=== PATIENT | male | born 1980 | race Caucasian/White ===

== ENCOUNTER 2018-03-19 20:52 | Emergency (ER) | payer SELFPAY ==
[~2018-03-19] VITALS: Ht 175.3 cm; Wt 85.0 kg
[2018-03-19 21:14] VITALS: BP 137/87
[2018-03-19] MEDS ORDERED: PERTUSS(ACELL),DIPH,TET VAC/PF 0.5 ML VIAL IM ONE (21:15)
[2018-03-19] MEDS ORDERED: SODIUM CHLORIDE 0.9% 1,000 ML IV ONE (21:15)
== END 2018-03-19 21:40 | disposition short-term general hospital (02) ==
LOC: EMS 20:52
DX: S01.01XA Laceration without foreign body of scalp, initial encounter (principal); S41.112A Laceration without foreign body of left upper arm, initial encounter; W26.9XXA Contact with unspecified sharp object(s), initial encounter; Y93.89 Activity, other specified; Y92.89 Other specified places as the place of occurrence of the external cause; Y99.8 Other external cause status
CPT/HCPCS: 71045; 90471; 90715; 99285; J7030

== ENCOUNTER 2023-03-23 22:53 | Emergency (ER) | payer OTHER ==
[~2023-03-23] VITALS: Ht 175.3 cm; Wt 84.1 kg
[2023-03-24] MEDS: PERTUSS(ACELL),DIPH,TET VAC/PF 0.5 ML SYRINGE IM. ONE (02:53)
[2023-03-24] MEDS: IBUPROFEN 800 MG TABLET PO ONE (02:54)
[2023-03-24 03:17] VITALS: BP 124/71; PULSE 76; RESP 18; TEMP 98.3
== END 2023-03-24 03:24 | disposition home or self-care (01) ==
LOC: EMS 22:55
DX: S00.83XA Contusion of other part of head, initial encounter (principal); V19.88XA Pedal cyclist (driver) (passenger) injured in other specified transport accidents, initial encounter; Y93.89 Activity, other specified; Y92.89 Other specified places as the place of occurrence of the external cause; Y99.8 Other external cause status
CPT/HCPCS: 70450; 70486; 90471; 90715; 99173; 99285

== ENCOUNTER 2024-02-28 12:22 | Emergency (ER) | payer OTHER ==
[~2024-02-28] VITALS: Ht 175.3 cm; Wt 92.0 kg
[~2024-02-28 12:22] MED LIST: AMLO-258 PO; LISI-893 PO
[2024-02-28 12:28] VITALS: TEMP 98.6
[2024-02-28] MEDS: AmLODIPine BESYLATE 10 MG TABLET PO ONE (12:54)
[2024-02-28 13:23] VITALS: BP 130/94; PULSE 67; RESP 18; O2SAT 98
[2024-02-28] MEDS ORDERED: LISI-893 PO (13:36)
[2024-02-28] MEDS ORDERED: AMLO-258 PO (13:36)
== END 2024-02-28 13:51 | disposition home or self-care (01) ==
LOC: EMS 12:22
DX: I10 Essential (primary) hypertension (principal); Z91.148 Patient's other noncompliance with medication regimen for other reason; Z76.0 Encounter for issue of repeat prescription
CPT/HCPCS: 99283

== ENCOUNTER 2024-05-25 11:16 | Emergency (ER) | payer OTHER ==
[~2024-05-25] VITALS: Ht 175.3 cm; Wt 95.5 kg
[2024-05-25 11:34] VITALS: BP 131/97; PULSE 76; RESP 18; TEMP 98.1; O2SAT 98
== END 2024-05-25 14:14 | disposition left against medical advice (07) ==
LOC: EMS 11:16
DX: I10 Essential (primary) hypertension (principal); Z53.21 Procedure and treatment not carried out due to patient leaving prior to being seen by health care provider